=== PATIENT | female | born 1955 | race African-American/Black ===

== ENCOUNTER 2016-11-20 05:18 | Day surgery (SDC) | payer OTHER ==
[2016-11-03 10:40] VITALS: BMI 29.1
[~2016-11-20 05:18] MED LIST: LEVOFLOXACIN 500 MG PREMIX BAG IVPB ONE
[2016-11-20] MEDS ORDERED: oxyCODONE HCL 5 MG TABLET PO PRN (09:03)
[2016-11-20] MEDS ORDERED: ONDANSETRON 4 MG/2 ML VIAL IVPUSH PRN (09:03)
[2016-11-20] MEDS ORDERED: LACTATED RINGERS SOLUTION 1,000 ML IV SCH (09:15)
[2016-11-20] MEDS ORDERED: LEVOFLOXACIN 500 MG IVPB 100 ML IVPB ONE (10:11)
[2016-11-20] MEDS ORDERED: MIDAZOLAM HCL 2 MG/2 ML SINGLE DOSE VIAL ONE (10:15)
[2016-11-20] MEDS ORDERED: LEVOFLOXACIN 500 MG PREMIX BAG IVPB ONE (10:17)
[2016-11-20] MEDS ORDERED: DEXAMETHASONE SOD PHOSPHATE 4 MG/1 ML VIAL ONE (10:21)
[2016-11-20] MEDS ORDERED: oxyCODONE HCL 5 MG TABLET ONE (11:24)
[2016-11-20 12:31] VITALS: BP 116/75; PULSE 66; TEMP 97.8
--- NOTE | 2016-11-20 15:30 | OP ---
Operative Note - Note: Operative Date: 11/20/16 Pre-Operative Diagnosis: right renal stone Operation: right eswl Findings: 5 mm right mid pole stone Surgeon: Weston Gomes Anesthesia: General
--- NOTE | 2016-11-21 08:49 | OP ---
DATE OF OPERATION: 11/20/2016 PREOPERATIVE DIAGNOSIS: Right renal stone. POSTOPERATIVE DIAGNOSIS: Right renal stone. PROCEDURE: Right extracorporeal shockwave lithotripsy. ATTENDING: Abdullahi Sanches MD ANESTHESIA: General. OPERATION: Patient was brought in the operating room and placed in the supine position on the operating room table. General anesthesia was administered. A 5-mm stone was noted. This stone was found to be in the midpole of the right kidney. The patient was also given intravenous Levaquin. At this point, extracorporeal shockwave lithotripsy was performed; 2500 impulses at 20 joules of power were administered to the stone. No complications were noted. The stone fragmented well. The disposition was to the recovery room. ABDULLAHI SANCHES M.D. [id number]
== END 2016-11-20 12:30 | disposition home or self-care (01) ==
LOC: JASU-SURG 05:18
PROVIDERS: ATTEND Urology
PROC: 0TF3XZZ Fragmentation in Right Kidney Pelvis, External Approach (ICD-10-PCS; principal; 2016-11-20 09:30)
DX: N20.0 Calculus of kidney (principal)
CPT/HCPCS: 94760

== ENCOUNTER 2016-12-18 10:27 | Day surgery (SDC) | payer OTHER ==
[2016-12-14 11:52] VITALS: BMI 29.1
[2016-12-18] MEDS ORDERED: MIDAZOLAM HCL 2 MG/2 ML SINGLE DOSE VIAL ONE (13:30)
[2016-12-18] MEDS ORDERED: LEVOFLOXACIN 500 MG PREMIX BAG IVPB ONE (13:32)
[2016-12-18] MEDS ORDERED: ONDANSETRON 4 MG/2 ML VIAL IVPUSH PRN (13:39)
[2016-12-18] MEDS ORDERED: LACTATED RINGERS SOLUTION 1,000 ML IV SCH (13:45)
[2016-12-18] MEDS ORDERED: oxyCODONE HCL 5 MG TABLET PO ONE ×2 (15:18→15:36)
--- NOTE | 2016-12-18 15:49 | OP ---
Operative Note - Note: Operative Date: 12/18/16 Pre-Operative Diagnosis: left renal stone Operation: left ESWL Findings: 7mm x 5mm left renal stone Post-Operative Diagnosis: Same as Pre-op Surgeon: Weston Gomes Anesthesia: Fractional
[2016-12-18 16:16] VITALS: BP 101/65; PULSE 67
[2016-12-18 18:02] VITALS: TEMP 98.5
--- NOTE | 2016-12-19 09:36 | OP ---
DATE OF OPERATION: 12/18/2016 PREOPERATIVE DIAGNOSIS: Left renal stone. POSTOPERATIVE DIAGNOSIS: Left renal stone. PROCEDURE: Left extracorporeal shock wave lithotripsy. ATTENDING: Abdullahi Sanches MD ANESTHESIA: Fractional. DESCRIPTION OF PROCEDURE: The patient was brought in the operating room, placed in supine position on the operating room table. Ultrasonography and fluoroscopy were performed. A 7 mm x 5 mm left upper pole renal stone was identified. Fractional anesthesia and antibiotics were then administered. At this point extracorporeal shock wave lithotripsy was started, with 3000 impulses at 20 joules of power were administered to the stone. Excellent fragmentation was noted under real time ultrasonography and fluoroscopy. No complications were noted. The patient tolerated the procedure very well. ABDULLAHI SANCHES M.D. [id number]
== END 2016-12-18 16:19 | disposition home or self-care (01) ==
LOC: JASU-SURG 10:27
PROVIDERS: ATTEND Urology
PROC: 0TF48ZZ Fragmentation in Left Kidney Pelvis, Via Natural or Artificial Opening Endoscopic (ICD-10-PCS; principal; 2016-12-18 12:45)
DX: N20.0 Calculus of kidney (principal)
CPT/HCPCS: 94760

== ENCOUNTER 2017-12-03 04:51 | Day surgery (SDC) | payer OTHER ==
[2017-11-28 13:49] VITALS: BMI 29.9
[2017-12-03] MEDS ORDERED: DEXAMETHASONE SOD PHOSPHATE 4 MG/1 ML VIAL ONE (09:50)
[2017-12-03] MEDS ORDERED: MIDAZOLAM HCL 2 MG/2 ML SINGLE DOSE VIAL ONE ×2 (09:50)
[2017-12-03] MEDS ORDERED: oxyCODONE HCL 5 MG TABLET PO PRN (09:54)
[2017-12-03] MEDS ORDERED: ONDANSETRON 4 MG/2 ML VIAL IVPUSH PRN (09:54)
[2017-12-03] MEDS ORDERED: PROMETHAZINE HCL 25 MG/1 ML VIAL IVPB PRN (09:54)
[2017-12-03] MEDS ORDERED: LACTATED RINGERS SOLUTION 1,000 ML IV SCH (10:00)
--- NOTE | 2017-12-03 10:42 | OP ---
Operative Note - Note: Operative Date: 12/03/17 Pre-Operative Diagnosis: Right kidney stone Operation: Right ESWL Findings: 5 mm mid pole renal stone Post-Operative Diagnosis: Same as Pre-op Surgeon: Weston Gomes Anesthesia: Fractional Estimated Blood Loss (mls): 0
[2017-12-03 11:33] VITALS: TEMP 98
[2017-12-03] MEDS ORDERED: ONDANSETRON 4 MG/2 ML VIAL ONE (12:43)
[2017-12-03 14:22] VITALS: BP 135/68; PULSE 69
--- NOTE | 2017-12-18 07:43 | OP ---
DATE OF OPERATION: 12/03/2017 PREOPERATIVE DIAGNOSIS: Right renal stone. POSTOPERATIVE DIAGNOSIS: Right renal stone. PROCEDURE: Left extracorporeal shock wave lithotripsy. ATTENDING: Abdullahi Sanches MD ANESTHESIA: General. DESCRIPTION OF OPERATION: The patient was brought in the operating room and placed in supine position on the operating room table. Ultrasonography and fluoroscopy were performed. A 5-mm right renal stone was identified. Anesthesia and preoperative antibiotics were then administered. The patient received 2500 impulses at 17 joules of power to the stone. Excellent fragmentation was noted. No complications were noted. The patient tolerated the procedure very well. ABDULLAHI SANCHES M.D. [id number]
== END 2017-12-03 14:25 | disposition home or self-care (01) ==
LOC: JASU-SURG 04:51
PROVIDERS: ATTEND Urology
PROC: 0TF4XZZ Fragmentation in Left Kidney Pelvis, External Approach (ICD-10-PCS; principal; 2017-12-03 09:30)
DX: N20.0 Calculus of kidney (principal)
CPT/HCPCS: 94760

== ENCOUNTER 2017-12-17 07:35 | Day surgery (SDC) | payer OTHER ==
[2017-12-14 13:35] VITALS: BMI 29.9
[2017-12-17] MEDS ORDERED: MIDAZOLAM HCL 2 MG/2 ML SINGLE DOSE VIAL ONE ×2 (09:17)
[2017-12-17] MEDS ORDERED: DEXAMETHASONE SOD PHOSPHATE 4 MG/1 ML VIAL ONE (09:18)
--- NOTE | 2017-12-17 09:59 | OP ---
Operative Note - Note: Operative Date: 12/17/17 Pre-Operative Diagnosis: Left kidney stone Operation: Left ESWL Findings: X2 7 mm Left upper pole x2 5 mm mid pole x2 5 mm lower pole renal stones Surgeon: Weston Gomes Anesthesia: Fractional Estimated Blood Loss (mls): 0
[2017-12-17 10:59] VITALS: TEMP 97.8
[2017-12-17 12:27] VITALS: BP 122/73; PULSE 67
--- NOTE | 2017-12-18 08:00 | OP ---
DATE OF OPERATION: 12/17/2017 PREOPERATIVE DIAGNOSIS: Left renal stone. POSTOPERATIVE DIAGNOSIS: Left renal stone. PROCEDURE: Left extracorporeal shock wave lithotripsy. ATTENDING: Weston Griffith MD ANESTHESIA: Fractional. DESCRIPTION OF OPERATION: The patient was brought in the operating room and placed in supine position on the operating room table. Ultrasonography and fluoroscopy were performed. Four stones were identified. Two stones, each measuring 7 mm, were noted in the left upper pole calyx. There were 2 other stones measuring 5 mm in the mid and lower poles. Fractional anesthesia was administered. It was decided to pursue the 7-mm stones. Both 7-mm stones were identified and targeted; 1500 impulses at 17 joules of power were administered to each stone. Excellent fragmentation was noted under real-time ultrasonography and fluoroscopy. No complications were noted. The disposition of the patient was to the recovery room. Kev [id number]
== END 2017-12-17 12:29 | disposition home or self-care (01) ==
LOC: JASU-SURG 07:35
PROVIDERS: ATTEND Urology
PROC: 0TF4XZZ Fragmentation in Left Kidney Pelvis, External Approach (ICD-10-PCS; principal; 2017-12-17 08:45)
DX: N20.0 Calculus of kidney (principal)

== ENCOUNTER 2018-10-21 07:33 | Day surgery (SDC) | payer OTHER ==
[2018-10-17 13:02] VITALS: BMI 29.2
[2018-10-21] MEDS ORDERED: oxyCODONE HCL 5 MG TABLET PO PRN (09:37)
--- NOTE | 2018-10-21 10:20 | OP ---
Operative Note - Note: Operative Date: 10/21/18 Pre-Operative Diagnosis: Left renal stone Operation: Left ESWL Findings: 10 mm mid pole left renal stone Post-Operative Diagnosis: Same as Pre-op Surgeon: Weston Gomes Anesthesia: Fractional Estimated Blood Loss (mls): 0 Operative Report Dictated: Yes
[2018-10-21 11:49] VITALS: TEMP 97.8
[2018-10-21 16:47] VITALS: BP 140/88; PULSE 60
--- NOTE | 2018-10-21 20:01 | OP ---
DATE OF OPERATION: 10/21/2018 PREOPERATIVE DIAGNOSIS: Left renal stone. POSTOPERATIVE DIAGNOSIS: Left renal stone. PROCEDURE PERFORMED: Left extracorporeal shock wave lithotripsy. SURGEON: Abdullahi Sanches MD ANESTHESIA: Fractional. DESCRIPTION OF PROCEDURE: The patient was brought to the operating room and placed in the supine position on the operating room table. Ultrasonography and fluoroscopy were performed. A 10-mm left mid-pole stone was identified. Fractional anesthesia and antibiotics were then administered. Shock wave lithotripsy was then performed. Excellent fragmentation was noted under real time ultrasonography. No complications were noted. The patient tolerated the procedure very well. ABDULLAHI SANCHES M.D. [id number]
== END 2018-10-21 12:20 | disposition home or self-care (01) ==
LOC: JASU-SURG 07:33
PROVIDERS: ATTEND Urology
PROC: 0TF4XZZ Fragmentation in Left Kidney Pelvis, External Approach (ICD-10-PCS; principal; 2018-10-21 09:30)
DX: N20.0 Calculus of kidney (principal)

== ENCOUNTER 2018-11-11 04:53 | Day surgery (SDC) | payer OTHER ==
[2018-11-06 09:26] VITALS: BMI 29.2
--- NOTE | 2018-11-11 09:15 | HP ---
Admitting History and Physical - Admission Chief Complaint: Ovarian Cyst History of Present Illness: 63yo here for LSC bilateral salpingectomy. Patient was noted to have pelvic pain and underwent imaging, showing a L 3cm dermoid cyst Her subsequent tumor markers for Ovarian CA were negative. Today she notes no complaints, feels well. History Source: Patient Limitations to Obtaining History: Language Barrier - Past Medical History PEST CONTROL PILOT: No: Alzheimer's, CVA, Dementia, Migraine, Multiple Sclerosis, Peripheral Neuropathy, Parkinson's, Seizure, Syncope, TIA, Vertigo, Other Cardiovascular: No: AFIB, Aneurysm, Aortic Insufficiency, Aortic Stenosis, CAD, CHF, Deep Vein Thrombosis, HTN, Hyperlipdemia, CA, Mitral Insufficiency, Mitral Stenosis, Murmur, Pulmonary Hypertension, Other Pulmonary: No: Asthma, Bronchitis, Cancer, COPD, O2 Dependent, Pneumonia, Previously Intubated, Pulmonary Embolus, Pulmonary Fibrosis, Sleep Apnea, Other Gastrointestinal: No: Ascites, Cancer, Constipation, Crohn's Disease, Diverticulitis, Diverticulosis, Esophageal Varices, Gastritis, GERD, GI Bleed, Hemorrhoids, Hiatal Hernia, Inflamatory Bowel Disease, Irritable Bowel Disease, Pancreatitis, Peptic Ulcer Disease, Ulcerative Colitis, Other Reproductive: No: Ectopic , Endometriosis, Fibroids, PID, Polycystic Ovary Syndrome, Postmenopausal, Other ...: No Heme/Onc: No: Anemia, B12 Deficiency, Bleeding Disorder, Cancer, Current Chemotherapy, Current Radiation Therapy, Hemochromatosis, Hypercoaguable State, Myeloproliferative Synd, Sickle Cell Disease, Sickle Cell Trait, Thrombocytopenia, Other Infectious Disease: No: AIDS, C-Diff, Herpes Zoster, HIV, MRSA, STD's, Tuberculosis, VREF, Other Psych: No: Addictions, Anxiety, Bipolar, Depression, Panic, Psychosis, Schizophrenia, Other - Past Surgical History Past Surgical History: Yes: Cholecystectomy Additional Past Surgical History: Bladder lift - Smoking History Smoking history: Never smoked Have you smoked in the past 12 months: No - Alcohol/Substance Use Hx Alcohol Use: No History of Substance Use: reports: None - Social History ADL: Independent Home Medications - Allergies Allergies/Adverse Reactions: Allergies Allergy/AdvReac Type Severity Reaction Status Date / Time Sulfa (Sulfonamide Allergy Intermediate Rash Verified 11/11/18 08:00 Antibiotics) - Home Medications Home Medications: Ambulatory Orders Clonazepam [Klonopin] 1 mg PO PRN 02/25/16 Montelukast Na [Singulair -] 10 mg PO PRN 02/25/16 Salmeterol/Fluticasone [Advair 100Mcg/50Mcg -] 1 puff IH BID 02/25/16 Albuterol Sulfate Inhaler - [Ventolin Hfa Inhaler -] 1 - 2 inh PO Q4H PRN Review of Systems - Review of Systems Constitutional: denies: No Symptoms, Chills, Diaphoresis, Fever, Lethargy, Loss of Appetite, Malaise, Night Sweats, Unintentional Wgt. Loss, Weakness, Other Cardiovascular: denies: No Symptoms, Chest Pain, Edema, Palpitations, Shortness of Breath, Other Gastrointestinal: denies: No Symptoms, Abdominal Pain, Bloating, Constipation, Diarrhea, Dysphagia, Indigestion, Melena, Nausea, Rectal Bleeding, Vomiting, Vomiting Blood, Other Physical Examination Vital Signs: Vital Signs Temperature 98.6 F 11/11/18 07:53 Pulse Rate 71 11/11/18 07:53 Respiratory Rate 20 11/11/18 07:53 Blood Pressure 123/81 11/11/18 07:53 O2 Sat by Pulse Oximetry (%) 97 11/11/18 07:43 Constitutional: Yes: Well Nourished, No Distress, Calm Eyes: Yes: WNL, Conjunctiva Clear, EOM Intact HENT: Yes: WNL, Atraumatic, Normocephalic Neck: Yes: WNL, Supple, Trachea Midline Cardiovascular: Yes: WNL, Regular Rate and Rhythm Respiratory: Yes: WNL, Regular, CTA Bilaterally Gastrointestinal: Yes: WNL, Normal Bowel Sounds Musculoskeletal: Yes: WNL Extremities: Yes: WNL Edema: No Integumentary: Yes: WNL Neurological: Yes: WNL, Alert, Oriented ...Motor Strength: WNL Psychiatric: Yes: WNL Assessment/Plan 63yo with ovarian cyst here for LSC bilateral salpingo-oophrectomy (BSO) NPO, IVFs SCDs Vieyra Risk of procedure including bleeding, infection, injury to surrounding organs/ vessels/nerves. All questions answered. Consent signed. Mima Taylor MD
[2018-11-11] MEDS ORDERED: LIDOCAINE HCL/PF 2% SDV 5ML VIAL ONE (09:23)
[2018-11-11] MEDS ORDERED: ceFAZolin SODIUM 1 GM VIAL ONE (09:23)
[2018-11-11] MEDS ORDERED: SODIUM CHLORIDE 0.9% P/F 10 ML VIAL IJ ONE ×2 (09:23→10:02)
[2018-11-11] MEDS ORDERED: DEXAMETHASONE SOD PHOSPHATE 4 MG/1 ML VIAL ONE (09:23)
[2018-11-11] MEDS ORDERED: PROPOFOL 20 ML ONE (09:27)
[2018-11-11] MEDS ORDERED: ROCURONIUM BROMIDE 50 MG/5 ML SYRINGE ONE (09:27)
[2018-11-11] MEDS ORDERED: MIDAZOLAM HCL 2 MG/2 ML SINGLE DOSE VIAL ONE (09:28)
[2018-11-11] MEDS ORDERED: BUPIVACAINE HCL/PF 0.25% (2.5MG/ML) 10 ML VIAL ONE (09:46)
[2018-11-11] MEDS ORDERED: BUPIVACAINE HCL/PF 0.25% (2.5MG/ML) 10 ML VIAL IJ ONE ×2 (10:10)
[2018-11-11] MEDS ORDERED: NEOSTIGMINE METHYLSULFATE 0.5 MG/ML - 10 ML MDV ONE (10:53)
[2018-11-11] MEDS ORDERED: GLYCOPYRROLATE 0.2 MG/1 ML VIAL ONE (10:54)
--- NOTE | 2018-11-11 11:18 | OP ---
Operative Note - Note: Operative Date: 11/11/18 Pre-Operative Diagnosis: L Ovarian dermoid cyst Operation: Laparoscopic Bilateral Salpingo-Oophrectomy Findings: Normal uterus Normal tubes bilaterally Normal right ovary, enlarged left ovary- solid mass Surgeon: Meg Taylor Underwear Trimmer: Onesimo Ge Anesthesia: General Specimens Removed: Right fallopian tube and ovary, left Fallopian tube and left ovary and left ovarian cyst Estimated Blood Loss (mls): 30 Drains, Volume Out (mls): 200 (clear urine)
[2018-11-11] MEDS ORDERED: ONDANSETRON 4 MG/2 ML VIAL IVPUSH PRN (11:22)
[2018-11-11] MEDS ORDERED: oxyCODONE HCL 5 MG TABLET PO PRN (11:22)
[2018-11-11] MEDS ORDERED: LACTATED RINGERS SOLUTION 1,000 ML IV SCH (11:30)
[2018-11-11] MEDS ORDERED: KETOROLAC TROMETHAMINE 15 MG/ML VIAL IVPUSH ONE ×2 (12:13→12:30)
--- NOTE | 2018-11-11 12:37 | SURG ---
Surgery Drapery Maker Note Drapery Maker: Onesimo Ge PA-C Date of Service: 11/11/18 Diagnosis: L Ovarian dermoid cyst Procedure: Laparoscopic Bilateral Salpingo-Oophrectomy I was present for the entirety of the operative procedure. For further detail, please refer to operative report. Visit type - Case Type Case Type: Scheduled - Emergency Emergency Visit: No - New patient This patient is new to me today: Yes Date on this admission: 11/11/18 - Critical Care Critical Care patient: No
[2018-11-11 13:54] VITALS: PULSE 81
[2018-11-11 16:56] VITALS: BP 130/80; TEMP 97.6
--- NOTE | 2018-11-11 17:46 | OP ---
DATE OF OPERATION: 11/11/2018 PREOPERATIVE DIAGNOSIS: Left ovarian dermoid cyst. POSTOPERATIVE DIAGNOSIS: Left ovarian dermoid cyst. PROCEDURE: Laparoscopic bilateral salpingo-oophorectomy. SURGEON: Meg Taylor MD KIER TENDER: DAYANARA Cortez ANESTHESIA: General. IV FLUID: Per Anesthesia record. ESTIMATED BLOOD LOSS: 30. URINE OUTPUT: 200 mL of clear urine at the end of the procedure. FINDINGS: Normal uterus, normal tubes bilaterally, normal right ovary, enlarged left ovary with a solid mass. COMPLICATIONS: None. CONDITION: Stable to recovery room. NATURE OF THE PROCEDURE: After the appropriate consents were signed, patient was taken to the operating room. General anesthesia was administered. She was placed in dorsal lithotomy position. A sterile Vieyra catheter was inserted. The abdomen was prepped and draped in the normal sterile fashion. A timeout was performed, confirming correct patient and procedure. The 2 mL of 0.25% Marcaine was injected into the umbilicus. A 5-mm incision was made with a 15 blade scalpel to accommodate a 5-mm laparoscope, which was introduced under direct visualization. Despite 2 attempts, sufficient placement into the abdominal cavity was not achieved. A decision was made to make a left upper quadrant Brown point incision. Under the same technique, 2 mL of 0.25% Marcaine was injected into the left upper quadrant port site. A 5-mm incision was made using the laparoscope. The laparoscope was introduced under direct visualization with correct placement and full visualization of the abdomen obtained. The abdomen was then insufflated with gas. The patient was placed in Trendelenburg position. Then 5-mm incisions left lower quadrant and right lower quadrant ports were made after injections with Marcaine. Both ports were introduced without difficulty. The bowel was swept from the patient's abdominal cavity to allow for sufficient visualization. The right fallopian tube and ovary appeared completely normal. Inspection of the left pelvis showed the left fallopian tube to be normal with thin adhesion to the pelvic sidewall, then an enlarged left ovarian smooth solid mass sitting in the posterior cul-de-sac. With manipulation, this mass was noted to be mobile with adhesions into the patient's broad ligament and side wall on its lateral edge. The right IP ligament and meso-ovarian ligaments were clamped across in a series of steps with the LigaSure device. Tissue was coagulated. The pedicles were noted to be hemostatic. Subsequent bites were taken all the way along to the insertion to the uterus, at which point it was transected and good hemostasis noted. Specimen was then placed in the patient's anterior cul-de-sac. Attention was then paid to the patient's left fallopian tube and ovary, which were noted as above. The adhesion on the left fallopian tube to the pelvic side wall was taken down with traction and the Ligasure device with good hemostasis. The left IP ligament and meso-ovarian ligaments were clamped across in a series of steps with the LigaSure device. Tissue was coagulated. The pedicles were noted to be hemostatic. Subsequent bites were taken all the way along to the insertion to the uterus, at which point it was transected and good hemostasis noted. Specimen was then placed in the patient's anterior cul-de-sac. The patient's left lower quadrant port was then converted into an 11 to accommodate an EndoCatch bag which was introduced. The patient specimens, both the right fallopian tube and ovary, were placed into the bag along with the patient's left enlarged ovary and cyst. The left fallopian tube was subsequently taken out separately as it became detached from the ovary upon further manipulation. The EndoCatch bag was then removed through the patient's left lower quadrant port. Bite sites were reexamined and noted to be hemostatic. The left lower quadrant and right lower quadrant ports were removed under visualization. The Paolo-Karie was introduced into the left port and closed with the Paolo-Karie technique with a 0 Vicryl with 2 subsequent sutures. The left upper quadrant port was then removed without difficulty. The abdomen was deflated of gas. The patient was taken out of Trendelenburg position. All skin incisions were closed with a 4-0 Biosyn, subcutaneous tissue, and the patient's left lower quadrant port was closed with 2-0 plain to allow for better approximation and cosmesis of the left lower quadrant port. Vieyra catheter was removed with clear urine noted. All sponge, lap, needle counts were correct x2. The patient did not receive any antibiotics during the procedure. She was taken from the operating room to the recovery area in stable condition. MD CAMILLA MEEHAN/[id number] [facility]
--- NOTE | 2018-11-14 17:28 | PATH ---
Surgical Pathology Report Patient Name: ADRIÁN SILVA [facility]. Rec. #: [id number] /Age/Gender: 1955 (Age: 63) / F Account: [id number] Location: [facility] SURGICAL Taken: 11/11/2018 Received: 11/11/2018 Reported: 11/14/2018 Physicians: Meg Taylor Specimen(s) Received A: OVARY/OVARIAN CYST, AND FALLOPIAN TUBE, LEFT B: FALLOPIAN TUBE AND OVARY, RIGHT Clinical History 63 year-old left ovarian dermoid cyst Final Diagnosis A. OVARY/OVARIAN CYST, AND FALLOPIAN TUBE, LEFT, LAPAROSCOPIC SALPINGO-OOPHORECTOMY: OVARY WITH MATURE CYSTIC TERATOMA, 4.7 CM, DISRUPTED. FALLOPIAN TUBE WITH PARATUBAL CYST (INCLUDING FULL LUMINAL PORTION AND FIMBRIATED END). B. FALLOPIAN TUBE AND OVARY, RIGHT, LAPAROSCOPIC SALPINGO-OOPHORECTOMY: FALLOPIAN TUBE WITH PARATUBAL CYST. CALCIFICATION WITHIN BLOOD VESSEL WALL(S). NO OVARIAN PARENCHYMA IDENTIFIED. Electronically Signed Zoë Calderon M.D. Gross Description A. Received in formalin labeled "left fallopian tube and ovary/left ovarian cyst," is a 3 cm in length fimbriated fallopian tube. The outer surface is mata-kay and appears to have been previously ligated. Sectioning reveals an unremarkable lumen. The fallopian tube displays an attached 2.0 x 1.3 x 0.9 cm ovary. The outer surface of the ovary is mata, convoluted and smooth. Sectioning reveals unremarkable ovarian parenchyma. Separately received within the same container is a 4.7 x 3.5 x 2.5 cm focally disrupted cyst. The outer surface of the cyst is mata and smooth. There is abundant yellow sebaceous material and hair within the cyst lumen. The inner lining of the cyst displays focal attached hard tissue. Engineering Aide sections are submitted in 7 cassettes as follows: 1-fimbria; 2-cross sections of fallopian tube; 3-ovary; 5-4-hysiclzubocgmw cyst; 7-chemical sales representative cyst, following decalcification. B. Received in formalin labeled "right fallopian tube and ovary," is a 4.7 cm in length portion of fallopian tube. No fimbria are present. The outer surface is mata-kay and smooth. Sectioning reveals an unremarkable lumen. Also received within the same container is a 2 cm in length tubular structure, consistent with vessels. There is an additional 1.5 x 0.7 x 0.5 cm mata-kay portion of soft tissue present. No definitive ovarian parenchyma is identified. Entire specimen is submitted in 5 cassettes as follows: 1-cross sections of fallopian tube; 2-cross sections of vessels; 3-entirely submitted separately received portion of soft tissue, 4-5: Remainder of specimen 11/12/2018 [facility]11/12/2018
== END 2018-11-11 15:30 | disposition home or self-care (01) ==
LOC: JASU-SURG 04:53
PROVIDERS: ATTEND Obstetrics & Gynecology
PROC: 0UT74ZZ Resection of Bilateral Fallopian Tubes, Percutaneous Endoscopic Approach (ICD-10-PCS; 2018-11-11)
PROC: 0UT24ZZ Resection of Bilateral Ovaries, Percutaneous Endoscopic Approach (ICD-10-PCS; principal; 2018-11-11 09:30)
DX: D27.1 Benign neoplasm of left ovary (principal)
CPT/HCPCS: 88305-TC; 88307-TC; 88311-TC; 94760